=== PATIENT | female | born 1975 | race Caucasian/White ===

== ENCOUNTER 2017-07-06 08:05 | Emergency (ER) | payer OTHER ==
[~2017-07-06] VITALS: Ht 167.6 cm; Wt 74.8 kg
[~2017-07-06 08:05] MED LIST: KETO10TA2 PO; ORPH100T PO
[2017-07-06] MEDS ORDERED: MEDROLPACK PO (09:47)
[2017-07-06] MEDS ORDERED: DICLOFENAC POTA50 MG PO (09:47)
== END 2017-07-06 10:07 | disposition home or self-care (01) ==
LOC: ER 08:05
DX: M54.5 Low back pain (principal)

== ENCOUNTER 2019-03-15 13:52 | Emergency (ER) | payer OTHER ==
[~2019-03-15] VITALS: Ht 167.6 cm; Wt 72.6 kg
[~2019-03-15 13:52] MED LIST changes: +DICLOFENAC POTA50 MG PO; +MEDROLPACK PO
== END 2019-03-15 19:22 | disposition home or self-care (01) ==
LOC: ER 13:52
DX: J11.1 Influenza due to unidentified influenza virus with other respiratory manifestations (principal)

== ENCOUNTER 2019-05-15 10:15 | Outpatient (CLI) | payer OTHER | END 2019-05-15 14:50 | disposition home or self-care (01) | LOC: RAD 10:15 | DX: S52.135A Nondisplaced fracture of neck of left radius, initial encounter for closed fracture (principal) ==

== ENCOUNTER 2020-07-20 10:45 | Outpatient (CLI) | payer OTHER | END 2020-07-20 10:58 | disposition home or self-care (01) | LOC: RAD 10:45 | PROVIDERS: ATTEND Orthopaedic Surgery | DX: M25.571 Pain in right ankle and joints of right foot (principal) ==

== ENCOUNTER 2024-05-30 11:37 | Emergency (ER) | payer OTHER ==
[~2024-05-30] VITALS: Ht 170.2 cm; Wt 74.8 kg
[2024-05-30] MEDS ORDERED: LOSARTAN POTAS100 MG PO (11:53)
[2024-05-30] MEDS ORDERED: MECLIZINE HCL 25 MG TABLET PO ONE ×2 (14:15→14:21)
[2024-05-30 14:48] LABS: HEMATOCRIT 35.6 % (36.0-45.00); HEMOGLOBIN 12.2 g/dL (12.0-15.00); MEAN CELL VOLUME 90.2 fL (80.00-100.00); MEAN CORPUSCULAR HEMOGLOBIN 30.9 pg (27.00-32.0); MEAN CORPUSCULAR HGB CONC 34.3 g/dl (32.0-36.0); PLATELET COUNT 366 K/uL (150-450); RED BLOOD COUNT 3.95 M/uL (4.00-6.00); RED CELL DISTRIBUTION WIDTH 14.6 % (11.5-14.5)
[2024-05-30 15:15] LABS: ALBUMIN 3.4 gm/dL (3.4-5.0); BILIRUBIN TOTAL 0.35 mg/dL (0.3-1.2); CALCIUM 8.6 mg/dL (8.5-10.1); CREATININE SERUM 0.93 mg/dL (0.55-1.02); GFR 64.08; GLOBULINA 4.2 G/DL (2.4-3.5); POTASSIUM 3.7 mEq/L (3.5-5.1); TOTAL PROTEIN 7.6 gm/dL (6.4-8.2)
[2024-05-30] MEDS ORDERED: MECLIZINE HCL25 MG PO (17:48)
== END 2024-05-30 18:16 ==
LOC: ER 11:40
PROVIDERS: General Practice
DX: R42 Dizziness and giddiness (principal); I10 Essential (primary) hypertension; Z20.822 Contact with and (suspected) exposure to COVID-19

== ENCOUNTER 2024-06-30 10:55 | Outpatient (CLI) | payer OTHER ==
[~2024-06-30 10:55] MED LIST changes: +LOSARTAN POTAS100 MG PO; +MECLIZINE HCL25 MG PO
== END 2024-06-30 11:05 | disposition home or self-care (01) ==
LOC: SONOGRAMA 10:55
DX: E04.1 Nontoxic single thyroid nodule (principal)